=== PATIENT | male | born 1930 | race Two or more races ===

== ENCOUNTER 2018-03-18 23:09 | Inpatient (IN) | payer MEDICARE, OTHER ==
[~2018-03-18] VITALS: Ht 165.1 cm; Wt 49.0 kg
[2018-03-19] MEDS ORDERED: ACETAMINOPHEN 325 MG TABLET PO PRN (03:30)
[2018-03-19] MEDS ORDERED: ONDANSETRON HCL/PF 4 MG/2 ML VIAL IVP PRN (03:30)
[2018-03-19] MEDS ORDERED: MORPHINE SULFATE INJ 2 MG/ML DISP.SYRIN IV PRN (03:30)
--- NOTE | 2018-03-19 03:30 | NUR ---
RN NOTES 0230 - PT CAME FROM [facility] VIA GURNEY, AWAKE, ALERT AND ORIENTED X3. ON 2LPM 02 VIA CA AND TOLERATED WELL. DENIES PAIN, NAUSEA, AND VOMITING. VITAL SIGNS STABLE, AFEBRILE. SKIN CHECK DONE, CLEAR AND INTACT. AMBULANCE DID NOT WENT TO ER FOR ADMISSION BEFORE GOING TO THE FLOOR, ALL PAPERS FROM [facility] BROUGHT TO ER FOR ADMISSION. 031 - ANA LILIA EDMONDSON NP WAS PAGED FOR ADMITTING ORDERS, AWAITING FOR RETURN CALL. 318 - RECEIVED ADMITTING ORDERS FROM ANA LILIA LU, PT TO ADMIT TO TELEMETRY FOR SEPSIS. ABDI SHRUB PLANTER MADE AWARE, GREYSON CHARGE NURSE NOTIFIED. TRANSFERRED PT TO 323-2 IN STABLE CONDITION.
[2018-03-19 03:40] VITALS: BP 125/69
--- NOTE | 2018-03-19 03:40 | NUR ---
RN MS OPENING RECEIVING NOTES RECEIVED PATIENT FROM LIZETTE THOMPSON FOR CONTINUITY OF CARE. PATIENT IS FROM [facility] ADMITTED FOR SEPSIS AND PNA, UNDER TELEMETRY RECEIVED PATIENT IN BED AWAKE ALERT AND ORIENTED X 4, ON 2 LITERS VIA NC WITH SPO2 AT 97%, WITH FLOOR BROKER TAGAOLG SPEAKING, PATIENT DENIES ANY SOB OR CHEST PAIN AT THIS TIME. BODY ASSESSMENT COMPLETED SKIN INTACT, BELONGINGS LIST DONE SIGNED BY SON MERISSA. IV SITE TO RIGHT HAND #20 G INTACT AND PATENT NO REDNESS NO INFILTRATION PRESENT. HISTORY PROVIDED BY PATIENT AND SON, SHYANNE VERDUZCO IN MD TO FOLLOW UP, ANA LILIA MADE AWARE OF PATIENT STATUS WITH NEW ORDERS NOTED AND CARRIED OUT FOR SEPSIS TREATMENT,WILL FOLLOW ORDERED. SAFETY PRECAUTIONS IN PLACE, LOW BED AND LOCKED, ORIENTED TO CALL LIGHT. BED ALARM IN PLACE, ALL NEEDS ATTENDED AT THIS TIME WILL CONTINUE TO MONITOR. Addendum: 03/19/18 at 0815 by KULWINDER BERNSTEIN RN CLARIFICATION HELMET HAT SWEATBAND PUNCHER OPENING ADMITTING/RECEIVING NOTES
[2018-03-19 03:46] LABS: BASOPHILS % (AUTO) 0.3 % (0.0-2.0); HEMATOCRIT 46 % (39-51); HEMOGLOBIN 14.7 g/dL (13.5-17.5); LYMPHOCYTES # (AUTO) 0.4 /CMM (0.8-4.8); LYMPHOCYTES % (AUTO) 3.3 % (20.0-44.0); MEAN CORPUSCULAR HEMOGLOBIN 31 PG (26.0-33.0); MEAN CORPUSCULAR HGB CONC 32 g/dl (31.0-36.0); MEAN CORPUSCULAR VOLUME 98 fL (80-96); MONOCYTES # (AUTO) 0.2 /CMM (0.1-1.30); MONOCYTES % (AUTO) 1.4 % (2.0-12.0); NEUTROPHILS # (AUTO) 12.7 /CMM (1.8-8.9); PLATELET COUNT (AUTO) 367 /CMM (150-450); RDW COEFFICIENT OF VARIATION 12.9 (11.5-15.0); RED BLOOD CELL COUNT(AUTO) 4.71 MIL/uL (4.5-6.0); WHITE BLOOD COUNT (AUTO) 13.4 K/uL (4.3-11.0)
[2018-03-19 03:57] LABS: CALCIUM, SERUM 9.3 mg/dL (8.5-10.1); CARBON DIOXIDE 27 mmol/L (21-32); CHLORIDE 104 mmol/L (98-107); CREATININE 1.2 mg/dL (0.6-1.3); GLUCOSE 146 mg/dL (74-106); POTASSIUM 5.9 mmol/L (3.5-5.1); SODIUM SERUM 140 mmol/L (136-145); UREA NITROGEN, BLOOD 20 mg/dL (7-18)
[2018-03-19 04:00] VITALS: BP 125/69
[2018-03-19 04:01] LABS: INR 0.92 (0.87-1.13)
--- NOTE | 2018-03-19 04:08 | NUR ---
CPC NOTES MADE MD ANA LILIA HENDRICKSON AWARE OF LACTIC ACID OF 6.4 WITH NEW ORDERS NOTED AND CARRIED OUT FOR 2L NS BOLUS IVF NS AT 150ML/HR REPEAT LACTIC ACID AT 10 AM 03/19/18 URINE COLLECTION -UA ECHO TO RULE OUT ENDOCARDITIS RESPIRATORY CULTURE FOR FUNGAL AND BACTERIAL. WILL FOLLOW UP ORDERED
[2018-03-19 04:10] LABS: CHOLESTEROL 244 mg/dL (<200); HDL CHOLESTEROL 54 mg/dL (40-60); LDL 185 mg/dL (0-99); TRIGLYCERIDES 62 mg/dL (30-150)
[2018-03-19 04:11] LABS: ALANINE AMINOTRANSFERASE 30 U/L (12-78); ALBUMIN 3.3 g/dL (3.4-5.0); ALKALINE PHOSPHATASE 79 U/L (46-116); ASPARTATE AMINOTRANSFERASE 24 U/L (15-37); BILIRUBIN,DIRECT 0.1 mg/dL (0.0-0.2); BILIRUBIN,TOTAL 0.3 mg/dL (0.2-1.0); IRON, SERUM 72 ug/dl (50-175); PHOSPHORUS 3.2 mg/dL (2.5-4.9); TOTAL IRON BINDING CAPACITY 311 ug/dl (250-450); TOTAL PROTEIN, SERUM 7.5 g/dL (6.4-8.2)
[2018-03-19] MEDS ORDERED: IV NS 0.9% 1,000 ML IV ONE (04:30)
[2018-03-19] MEDS ORDERED: NS IV STA (04:38)
[2018-03-19] MEDS ORDERED: CEFU500T66 PO (05:07)
[2018-03-19] MEDS ORDERED: MONT10TA22 PO (05:07)
[2018-03-19] MEDS ORDERED: SODIUM POLYSTYRENE SULFONATE 15 G/60 ML BOTTLE PO ONE (05:30)
[2018-03-19] MEDS ORDERED: SODIUM BICARBONATE SYR 50 MEQ/50 ML DISP.SYRIN IV ONE (05:30)
[2018-03-19] MEDS ORDERED: Calcium Gluconate 1GM/10ML 9.3 MEQ in IV NS 0.9% 250 ML IV ONE ×2 (05:30→10:00)
--- NOTE | 2018-03-19 05:30 | NUR ---
MANAGER ESTATE NOTES MADE NO ANA LILIA HENDRICKSON AWARE OF POTASSIUM RESULT OF 5.9 WITH NEW ORDERS , WILL FOLLOW UP MD ORDERED. KAYEXALATE 60G/240ML GIVEN ORDERED SODIUM BICARBONATE GIVEN ORDERED
[2018-03-19] MEDS ORDERED: SODIUM POLYSTYRENE SULFONATE 15 G/60 ML BOTTLE ONE (05:56)
[2018-03-19] MEDS ORDERED: SODIUM BICARBONATE SYR 50 MEQ/50 ML DISP.SYRIN ONE (06:00)
--- NOTE | 2018-03-19 06:25 | NUR ---
RN NOTES: RECEIVED CALL FROM CHANCE FROM LAB FOR LACTIC ACID RESULT OF 3.3, RELAYED TO CUPOLA MAN ROTARY ADJUSTER, PER ROTARY ADJUSTER TO GIVE ANOTHER 1L NS BOLUS, AND RECHECK LACTIC ACID AT 10AM
[2018-03-19] MEDS ORDERED: IV NS 0.9% 1,000 ML IV STA (06:26)
[2018-03-19 06:50] LABS: APPEARANCE,URINE CLEAR (CLEAR); BILIRUBIN,URINE NEGATIVE (NEGATIVE); BLOOD, URINE NEGATIVE Ery/uL (NEGATIVE); COLOR,URINE YELLOW (YELLOW); KETONES,URINE NEGATIVE (NEGATIVE); LEUKOCYTE ESTERASE ,URINE NEGATIVE (NEGATIVE); NITRITE, URINE NEGATIVE (NEGATIVE); PROTEIN,URINE NEGATIVE (NEGATIVE); UGLUCOSE NEGATIVE (NEGATIVE); UROBILINOGEN,URINE 0.2 EU/dL (0.2)
[2018-03-19 07:07] VITALS: BP 148/77
--- NOTE | 2018-03-19 07:30 | NUR ---
STRINGS TEACHER INITIAL NOTES Report received. Patient received in bed, awake, sitting by the edge of the bed. Alert and oriented x3-4, verbally responsive, hard of hearing. On oxygen therapy @3LPM via nasal cannula with no SOB/labored breathing. Denies any chest pain or any type of pain at the moment. Tele: Sinus tach; HR 99. Not in any type of distress. On bolus treatment IVF. HOB elevated. Safety measures in place. Will continue to monitor and assess patient.
--- NOTE | 2018-03-19 07:30 | NUR ---
RN CLOSING TELE NOTES PATIENT REMAINS IN BED AWAKE ALERT AND ORIENTED X 4, NO SOB DENIES PAIN OR DISCOMFORT, IV NS BOLUS 2ND BAG INFUSING, IV SITE INTACT AND PATENT, NO REDNESS , NO INFILTRATION PRESENT, SAFETY PRECAUTIONS IN PLACE, LOW BED AND LOCKED, BED ALARM IN PLACE, CALL LIGHT KEPT WITHIN REACH. ALL NEEDS ATTENDED AT THIS TIME WILL CONTINUE TO ENDORSE FOR CONTINUITY OF CARE. ENDORSE TO ADMINISTER CALCIUM GLUCONATE UNABLE TO OVERRIDE MEDICATION CHARGE NURSE AWARE, ENDORSE TO INFUSED 1L NS ORDERED PER MD ORDERED FOR LACTIC ACID OF 3.3. PATIENT TO RECEIVE 3 LITERS TOTAL. REASSESSMENT OF SEPSIS NOT COMPLETED DUE TO SEPSIS ORDER/PROTOCOL NOT COMPLETED DURING SHIFT ENDORSE TO REASSESS AFTER LAST 1L IS INFUSED. PATIENT LEFT SAFE CONTINUITY OF CARE ENDORSED TO NEXT SHIFT.
[2018-03-19 08:00] VITALS: BP 159/83
[2018-03-19] MEDS: PANTOPRAZOLE 40 MG VIAL IV SCH (09:43)
[2018-03-19] MEDS: DOXYCYCLINE 100 MG in IV D5W 100 ML IV SCH ×2 (09:43→22:19)
--- NOTE | 2018-03-19 10:08 | NUR ---
PATIENT HAVING PHYSICAL THERAPY SESSION. WILL DO ECHO TEST LATER..
[2018-03-19 12:00] VITALS: BP 161/70
[2018-03-19 17:10] LABS: CALCIUM, SERUM 8.7 mg/dL (8.5-10.1); CARBON DIOXIDE 29 mmol/L (21-32); CHLORIDE 107 mmol/L (98-107); CREATININE 0.8 mg/dL (0.6-1.3); GLUCOSE 117 mg/dL (74-106); POTASSIUM 3.8 mmol/L (3.5-5.1); SODIUM SERUM 144 mmol/L (136-145); UREA NITROGEN, BLOOD 18 mg/dL (7-18)
--- NOTE | 2018-03-19 17:18 | NUR ---
WIRE DRAWING SETTER - ORDER NOTES Spoke to daughter at bedside to bring cd for CT results from [facility] or to request dania from [facility] if CD is not on-hand. Daughter confirmed and verbalized understanding.
[2018-03-19] MEDS: ALBUTEROL FS 2.5 MG/0.5 ML VIAL.NEB NEB SCH ×3 (19:30→22:57)
[2018-03-19] MEDS: IPRATROPIUM NEB FS 0.5 MG/2.5 ML AMPUL.NEB NEB SCH ×3 (19:30→22:57)
--- NOTE | 2018-03-19 19:37 | NUR ---
OUTPATIENT PHYSICAL THERAPIST ASSISTANT CLOSING NOTES Report given. Patient in bed, awake and verbally responsive. Family at bedside. On droplet isolation to rule out TB. AFB x2 sputum sample collected. Denies any pain at the moment. IV on left forearm #22g; patent and intact with NS running, tolerating well. Tele:Sinus Rhythm; HR 71. On continuous oxygen therapy @2LPM via nasal cannula with no SOB/breathing noted. Not in any type of distress. All needs anticipated and met. Bed in locked and lowest position with call light within reach. Endorsed to oncoming shift nurse
--- NOTE | 2018-03-19 19:40 | NUR ---
TELE/RN NOTES RECEIVED PT. SITTING UP IN CHAIR. PT. IS AWAKE, ALERT AND ORIENTED X 2-3. BREATHING EVEN AND UNLABORED ON 3LPM O2 VIA NC. NO SOB, RESPIRATORY DISTRESS OR COMPLAINTS OF PAIN NOTED AT THIS TIME. ISOLATION PRECAUTIONS IMPLEMENTED AND IN PLACE. PT. WITH EXTERNAL BELT AND LINK SHOP SUPERVISOR PRESENT AND INTACT. CURRENT RHYTHM = WITH LEFT FOREARM 22 GAUGE PERIPHERAL IV PRESENT, PATENT AND INTACT ADMINISTERING TO PT. NS @ 150 ML/HR. PT. WITH FAMILY MEMBER PRESENT AT BEDSIDE. BED LOCKED AND IN LOWEST POSITION, SIDE RAILS UP X2, CALL LIGHT WITHIN REACH, WILL CONTINUE TO MONITOR.
[2018-03-19 20:00] VITALS: BP 152/92
[2018-03-19] MEDS: CEFTRIAXONE 1 G in IV D5W 50 ML IV SCH (21:24)
[2018-03-19] MEDS: MORPHINE SULFATE INJ 4 MG/ML DISP.SYRIN IV PRN (23:02)
[2018-03-20] VITALS: BP 136/73
[2018-03-20] MEDS: ALBUTEROL FS 2.5 MG/0.5 ML VIAL.NEB NEB SCH ×4 (01:16→19:55)
[2018-03-20] MEDS: IPRATROPIUM NEB FS 0.5 MG/2.5 ML AMPUL.NEB NEB SCH ×4 (01:16→19:55)
--- NOTE | 2018-03-20 06:50 | NUR ---
TELE/RN NOTES PT. IS LYING IN BED RESTING. PT. IS EASILY AROUSABLE TO TOUCH. BREATHING EVEN AND UNLABORED ON 3LPM O2 VIA NC. NO SOB, RESPIRATORY DISTRESS OR COMPLAINTS OF PAIN NOTED AT THIS TIME. ISOLATION PRECAUTIONS IMPLEMENTED AND IN PLACE. PT. WITH EXTERNAL ELECTRONIC FUNDS TRANSFER COORDINATOR PRESENT AND INTACT. CURRENT RHYTHM = SINUS RHYTHM HR 82. PT. WITH LEFT FOREARM 22 GAUGE PERIPHERAL IV PRESENT, PATENT AND INTACT ADMINISTERING TO PT. NS @ 150 ML/HR. ALL PT. NEEDS MET. BED LOCKED AND IN LOWEST POSITION, SIDE RAILS UP X2, CALL LIGHT WITHIN REACH, WILL ENDORSE TO DAYSHIFT NURSE FOR CONTINUITY OF CARE.
[2018-03-20 08:00] VITALS: BP 160/76
--- NOTE | 2018-03-20 08:00 | NUR ---
PALLIATIVE CARE NURSE PRACTITIONER NOTES PATIENT IN BED RESTING. NO SOB OR ACUTE DISTRESS NOTED. PATIENT ALERT, ORIENTED X3. ON OXYGEN TOLERATING WELL. PERIPHERAL IV INTACT PATENT RUNNING PRESCRIBED FLUIDS. PATIENT INSTRUCTED AND PROVIDED SPUTUM SPECIMEN CUP TO PROVIDE A SAMPLE. BED IN LOW LOCKED POSITION. CALL LIGHT WITHIN REACH. PATIENT ON ISOLATION TO RULE OUT TB. WILL CONTINUE TO MONITOR.
[2018-03-20] MEDS: PANTOPRAZOLE 40 MG VIAL IV SCH (08:58)
[2018-03-20] MEDS: DOXYCYCLINE 100 MG in IV D5W 100 ML IV SCH ×2 (08:58→22:57)
[2018-03-20 11:39] LABS: CARBON DIOXIDE 28 mmol/L (21-32); CHLORIDE 105 mmol/L (98-107); CREATININE 0.7 mg/dL (0.6-1.3); GLUCOSE 115 mg/dL (74-106); MAGNESIUM 1.7 mg/dL (1.8-2.4); PHOSPHORUS 3.2 mg/dL (2.5-4.9); POTASSIUM 3.3 mmol/L (3.5-5.1); SODIUM SERUM 142 mmol/L (136-145); UREA NITROGEN, BLOOD 16 mg/dL (7-18)
[2018-03-20 11:48] LABS: BASOPHILS % (AUTO) 0.4 % (0.0-2.0); EOSINOPHILS % (AUTO) 1.8 % (0.0-6.0); HEMATOCRIT 38 % (39-51); LYMPHOCYTES # (AUTO) 1.2 /CMM (0.8-4.8); LYMPHOCYTES % (AUTO) 12.3 % (20.0-44.0); MEAN CORPUSCULAR HEMOGLOBIN 32 PG (26.0-33.0); MEAN CORPUSCULAR HGB CONC 34 g/dl (31.0-36.0); MEAN CORPUSCULAR VOLUME 95 fL (80-96); MONOCYTES # (AUTO) 0.6 /CMM (0.1-1.30); MONOCYTES % (AUTO) 5.8 % (2.0-12.0); NEUTROPHILS # (AUTO) 7.8 /CMM (1.8-8.9); NEUTROPHILS % (AUTO) 79.7 % (43.0-81.0); PLATELET COUNT (AUTO) 342 /CMM (150-450); RDW COEFFICIENT OF VARIATION 12.2 (11.5-15.0); RED BLOOD CELL COUNT(AUTO) 4.02 MIL/uL (4.5-6.0); WHITE BLOOD COUNT (AUTO) 9.8 K/uL (4.3-11.0)
[2018-03-20 12:18] LABS: FREE PSA 2.19 ng/mL (0.00-45); PROSTATE SPECIFIC ANTIGEN SCR 13.94 ng/mL (0.00-4.00)
[2018-03-20] MEDS: IV NS 0.9% 1,000 ML BAG IV SCH (13:06)
[2018-03-20] MEDS ORDERED: POTASSIUM CHLORIDE 10 MEQ TABLET.SA PO ONE (15:30)
[2018-03-20] MEDS ORDERED: Magnesium 1 GM/2 ML VIAL IV ONE (15:30)
[2018-03-20 16:00] VITALS: BP 140/70
[2018-03-20] MEDS: Magnesium 1GM/D5W 100ML PREMIX 100 ML IV SCH ×2 (16:18→19:18)
--- NOTE | 2018-03-20 18:28 | NUR ---
MS RN NOTES PATIENT IN BED RESTING NO SOB OR ACUTE DISTRESS NOTED. ALL DUE MEDIATIONS ADMINISTERED. ALL NEEDS MET. WILL ENDORSE TO PM SHIFT.
--- NOTE | 2018-03-20 19:20 | NUR ---
MS/RN NOTES RECEIVED PT. SITTING UP IN BED. PT. IS AWAKE, ALERT AND ORIENTED X 2-3. BREATHING EVEN AND UNLABORED ON 3LPM O2 VIA NC. NO SOB, RESPIRATORY DISTRESS OR COMPLAINTS OF PAIN NOTED AT THIS TIME. ISOLATION PRECAUTIONS IMPLEMENTED AND IN PLACE. PT. WITH LEFT FOREARM 22 GAUGE PERIPHERAL IV PRESENT, PATENT AND INTACT ADMINISTERING TO PT. NS @ 150 ML/HR. PT. WITH FAMILY MEMBER PRESENT AT BEDSIDE. BED LOCKED AND IN LOWEST POSITION, SIDE RAILS UP X2, CALL LIGHT WITHIN REACH, WILL CONTINUE TO MONITOR.
[2018-03-20 20:00] VITALS: BP 165/83
[2018-03-20] MEDS: CEFTRIAXONE 1 G in IV D5W 50 ML IV SCH (21:25)
[2018-03-21] MEDS: IPRATROPIUM NEB FS 0.5 MG/2.5 ML AMPUL.NEB NEB SCH ×4 (02:10→20:32)
[2018-03-21] MEDS: ALBUTEROL FS 2.5 MG/0.5 ML VIAL.NEB NEB SCH ×4 (02:10→20:32)
--- NOTE | 2018-03-21 02:55 | NUR ---
MS/RN NOTES NOTIFIED EPIC BARK SCALER ALY HENDRICKSON PT. IS COMPLAINING OF BEING UNABLE TO URINATE AND PAIN IN HIS BLADDER. PERFORMED BLADDER SCAN PT. RETAINING MORE THAN 650 ML. PER ALY HENDRICKSON NEW ORDER: INSERT DEL ANGEL CATHETER IF PT. RETAINING MORE THAN 300ML ON BLADDER SCAN. WILL INSERT DEL ANGEL CATHETER. WILL CONTINUE TO MONITOR.
--- NOTE | 2018-03-21 03:30 | NUR ---
MS/RN NOTES INSERTED 16 ARMENIAN DEL ANGEL CATHETER. PT. TOLERATED DEL ANGEL INSERTION WELL. PT. DEL ANGEL CATHETER DRAINING CLEAR YELLOW URINE. WILL CONTINUE TO MONITOR.
[2018-03-21] MEDS: IV NS 0.9% 1,000 ML BAG IV SCH ×2 (06:34→13:49)
--- NOTE | 2018-03-21 06:50 | NUR ---
MS/RN NOTES PT. IS LYING IN BED. PT. IS AWAKE, ALERT AND ORIENTED X 2-3. BREATHING EVEN AND UNLABORED ON 3LPM O2 VIA NC. NO SOB, RESPIRATORY DISTRESS OR COMPLAINTS OF PAIN NOTED AT THIS TIME. ISOLATION PRECAUTIONS IMPLEMENTED AND IN PLACE. PT. WITH LEFT FOREARM 22 GAUGE PERIPHERAL IV PRESENT, PATENT AND INTACT ADMINISTERING TO PT. NS @ 150 ML/HR. PT. WITH DEL ANGEL CATHETER PRESENT, PATENT AND INTACT DRAINING CLEAR YELLOW URINE. ALL PT. NEEDS MET. BED LOCKED AND IN LOWEST POSITION, SIDE RAILS UP X2, CALL LIGHT WITHIN REACH, WILL ENDORSE TO DAYSHIFT NURSE FOR CONTINUITY OF CARE.
--- NOTE | 2018-03-21 07:20 | NUR ---
MS RN OPENING NOTE RECEIVED PT IN BED, AA0X3, DENIES N/V, CHEST PAIN, SOB. BREATHING IS EVEN AND UNLABORED ON 3L NC. AIRBORNE AND CONTACT PRECAUTIONS MAINTAINED. L FA #22 G IS INFUSING NS @ 150 ML/HR WITHOUT REDNESS OR SWELLING. DEL ANGEL CATHETER NOTED TO BE DRAINING CLEAR, YELLOW URINE. SAFETY PRECAUTIONS MAINTAINED, ALL NEEDS ATTENDED TO. BED IS LOCKED AND IN LOWEST POSITION, SIDE RAILS UP X2, CALL LIGHT IS WITHIN REACH. WILL CONTINUE TO MONITOR.
[2018-03-21 08:00] VITALS: BP 196/86
[2018-03-21 08:11] LABS: CALCIUM, SERUM 7.9 mg/dL (8.5-10.1); CARBON DIOXIDE 29 mmol/L (21-32); CHLORIDE 105 mmol/L (98-107); CREATININE 0.5 mg/dL (0.6-1.3); GLUCOSE 94 mg/dL (74-106); POTASSIUM 3.6 mmol/L (3.5-5.1); SODIUM SERUM 141 mmol/L (136-145); UREA NITROGEN, BLOOD 9 mg/dL (7-18)
[2018-03-21] MEDS: DOXYCYCLINE HYCLATE (100 MG) 100 MG TABLET PO SCH ×2 (08:18→21:12)
[2018-03-21] MEDS: PANTOPRAZOLE 40 MG VIAL IV SCH (08:18)
[2018-03-21 09:02] LABS: BASOPHILS % (AUTO) 0.5 % (0.0-2.0); EOSINOPHILS % (AUTO) 2.4 % (0.0-6.0); HEMATOCRIT 39 % (39-51); HEMOGLOBIN 13.5 g/dL (13.5-17.5); LYMPHOCYTES % (AUTO) 11.9 % (20.0-44.0); MEAN CORPUSCULAR HEMOGLOBIN 33 PG (26.0-33.0); MEAN CORPUSCULAR HGB CONC 35 g/dl (31.0-36.0); MEAN CORPUSCULAR VOLUME 94 fL (80-96); MONOCYTES % (AUTO) 7.1 % (2.0-12.0); NEUTROPHILS % (AUTO) 78.1 % (43.0-81.0); PLATELET COUNT (AUTO) 333 /CMM (150-450); RDW COEFFICIENT OF VARIATION 13.3 (11.5-15.0); RED BLOOD CELL COUNT(AUTO) 4.08 MIL/uL (4.5-6.0); WHITE BLOOD COUNT (AUTO) 9.6 K/uL (4.3-11.0)
[2018-03-21] MEDS: hydrALAZINE HCL 25 MG TABLET PO PRN (09:20)
[2018-03-21] MEDS ORDERED: SODIUM CL FOR INHALATION 3% 15 ML VIAL.NEB IH ONE (09:30)
[2018-03-21] MEDS: methylPREDNISolone SOD SUCC 125 MG/2ML VIAL IV SCH ×3 (10:43→21:24)
--- NOTE | 2018-03-21 13:50 | NUR ---
MS RN NOTE PT OFF UNIT PT OFF UNIT FOR CT SCAN.
--- NOTE | 2018-03-21 15:00 | NUR ---
MS BAUER DEL ANGEL DEL ANGEL CATHETER NOTED TO BE DRAINING PINK, TINGED URINE WITH A FEW CLOTS AT THIS TIME. PT DENIES PAIN AT INSERTION SITE, BLADDER IS NON-DISTENDED, URINE IS FLOWING FREELY. WILL CONTINUE TO MONITOR. Addendum: 03/21/18 at 1826 by SHAUNA ECHEVERRIA RN ERROR: TIME NOTED WAS 1730.
[2018-03-21] MEDS ORDERED: CT SWABBABLE VALVE TRANS SET 1 EA INFUS.SET MC ONE (15:44)
[2018-03-21] MEDS ORDERED: IOHEXOL-300 100 ML VIAL IV ONE (15:44)
[2018-03-21] MEDS ORDERED: IV NS 0.9% 250 ML IV ONE (15:44)
[2018-03-21 16:00] VITALS: BP 139/68
--- NOTE | 2018-03-21 16:30 | NUR ---
MS RN PT BACK ON UNIT PT BACK FROM CT SCAN. NO ACUTE DISTRESS NOTED. WILL CONTINUE TO MONITOR.
--- NOTE | 2018-03-21 18:18 | NUR ---
MS RN CLOSING NOTE PT IN BED, SLEEPING AND EASILY AROUSABLE, AA0X3, DAUGHTER IS AT THE BEDSIDE. DENIES N/V, CHEST PAIN, SOB AT THIS TIME. BREATHING IS EVEN AND UNLABORED ON 3 L NC. AIRBORNE AND CONTACT PRECAUTIONS MAINTAINED THROUGHOUT THE SHIFT. L FA #22 G IV IS INFUSING NS @ 150ML/HR WITHOUT SWELLING, REDNESS, OR PAIN. DEL ANGEL CATHETER NOTED TO BE DRAINING PINK TINGED, YELLOW URINE WITH A FEW CLOTS, PT DENIES PAIN AT THE INSERTION SITE, URINE IS FLOWING FREELY. SAFETY PRECAUTIONS MAINTAINED, ALL NEEDS ATTENDED TO. BED IS LOCKED AND IN LOWEST POSITION, SIDE RAILS UP X2, CALL LIGHT IS WITHIN REACH. WILL ENDORSE TO INSPECTOR FIREARMS RN FOR CONTINUITY OF CARE.
[2018-03-21 20:00] VITALS: BP 160/99
--- NOTE | 2018-03-21 20:00 | NUR ---
MS TRELL INITIAL NOTES. RECEIVED REPORT FROM AM NURSE GERALDINE . PT DX OF SEPSIS. PT IS ALERT ORIENTED , NEW IV LINE INSERTED ON HIS RIGHT FOREARM GAUGE 20 . DENIES ANY PAIN OR ANY DISCOMFORT. BREATHING EVEN AND NON-LABORED. NO SOB NOTED. SKIN WARM TO TOUCH. ISOLATION PRECAUTION IMPLEMENTED AND OBSERVED. WILL CONTINUE MONITORING. PLACE CALL LIGHT AT REACH.
[2018-03-21] MEDS: MEROPENEM 1 G in IV NS 0.9% 100 ML IV SCH (21:26)
--- NOTE | 2018-03-22 00:21 | NUR ---
MS ICEBOX MAN NOTES PT RESTING AT THIS TIME SON JUST LEFT . RESPIRATION EVEN AND NON-LABORED, NOT IN ANY ACUTE DISTRESS NOTED. IVF STILL INFUSING AT THIS TIME. KEPT HIM WARM AND COMFORTABLE AT ALL TIMES. BED ALARM SET FOR PT SAFETY. WILL CONTINUE MONITORING.
[2018-03-22] MEDS: ALBUTEROL FS 2.5 MG/0.5 ML VIAL.NEB NEB SCH ×5 (01:44→19:49)
[2018-03-22] MEDS: IPRATROPIUM NEB FS 0.5 MG/2.5 ML AMPUL.NEB NEB SCH ×5 (01:44→19:49)
[2018-03-22] MEDS: methylPREDNISolone SOD SUCC 125 MG/2ML VIAL IV SCH ×3 (05:42→20:41)
--- NOTE | 2018-03-22 07:09 | NUR ---
MS CONTROL SPECIALIST CLOSING NOTES PT BACK TO SLEEP AFTER MORNING CARE DONE BY ARASH BRAXTON. ALL DUE MEDS GIVEN AND ALL NEEDS MET. STABLE JORDYN THE NIGHT AND SLEPT WELL. NO SIGNS OF ANY ACUTE DISTRESS OR ANY DISCOMFORT. STILL ON ISOLATION PRECAUTION. ON SEMI FOWLERS POSITION WITH SIDE RAILS X2 UP AND BED IN LOW AND LOCK IN POSITION. PLACE CALL LIGHT AT REACH. ENDORSE TO AM NURSE GERALDINE/ RADHA FOR CONTINUITY OF CARE.
--- NOTE | 2018-03-22 07:20 | NUR ---
MS RN OPENING NOTE RECEIVED PT IN BED FROM SUPPORT SERVICES SPECIALIST MAINTAINER SEWER AND WATERWORKS. PT IS SITTING UP IN BED, ALERT AND ORIENTED X3, DENIES N/V, CHEST PAIN, SOB. BREATHING IS EVEN AND UNLABORED ON 3 L NC. DEL ANGEL CATHETER NOTED TO BE DRAINING CLEAR, YELLOW URINE. R FA #22G IV IS INFUSING NS @ 150ML/HR WITHOUT REDNESS OR SWELLING. AIRBORNE AND CONTACT PRECAUTIONS MAINTAINED. ALL NEEDS ATTENDED TO. BED IS LOCKED AND IN LOWEST POSITION, SIDE RAILS UP X2, CALL LIGHT IS WITHIN REACH. WILL CONTINUE TO MONITOR.
[2018-03-22 08:00] VITALS: BP_SYST 165; BP_SYST 168; BP_DIAS 56; BP_DIAS 68
[2018-03-22] MEDS: hydrALAZINE HCL 25 MG TABLET PO PRN (08:17)
[2018-03-22] MEDS: PANTOPRAZOLE 40 MG VIAL IV SCH (08:17)
[2018-03-22] MEDS: DOXYCYCLINE HYCLATE (100 MG) 100 MG TABLET PO SCH ×2 (08:17→20:41)
[2018-03-22] MEDS ORDERED: LACTULOSE 10 G/15 ML UDC (PYXIS) PO PRN (08:30)
[2018-03-22 08:31] VITALS: BP 165/68
[2018-03-22] MEDS: MEROPENEM 1 G in IV NS 0.9% 100 ML IV SCH ×2 (08:53→20:41)
[2018-03-22 10:00] VITALS: BP 125/65
[2018-03-22 11:49] LABS: HEMATOCRIT 38 % (39-51); HEMOGLOBIN 12.9 g/dL (13.5-17.5); LYMPHOCYTES # (AUTO) 0.5 /CMM (0.8-4.8); LYMPHOCYTES % (AUTO) 3.2 % (20.0-44.0); MEAN CORPUSCULAR HEMOGLOBIN 32 PG (26.0-33.0); MEAN CORPUSCULAR HGB CONC 34 g/dl (31.0-36.0); MEAN CORPUSCULAR VOLUME 94 fL (80-96); MONOCYTES # (AUTO) 0.3 /CMM (0.1-1.30); NEUTROPHILS # (AUTO) 14.9 /CMM (1.8-8.9); NEUTROPHILS % (AUTO) 94.8 % (43.0-81.0); PLATELET COUNT (AUTO) 375 /CMM (150-450); RDW COEFFICIENT OF VARIATION 12.4 (11.5-15.0); RED BLOOD CELL COUNT(AUTO) 4.05 MIL/uL (4.5-6.0); WHITE BLOOD COUNT (AUTO) 15.7 K/uL (4.3-11.0)
[2018-03-22 11:51] LABS: CALCIUM, SERUM 8.4 mg/dL (8.5-10.1); CARBON DIOXIDE 26 mmol/L (21-32); CHLORIDE 103 mmol/L (98-107); CREATININE 0.9 mg/dL (0.6-1.3); GLUCOSE 157 mg/dL (74-106); POTASSIUM 3.8 mmol/L (3.5-5.1); SODIUM SERUM 139 mmol/L (136-145); UREA NITROGEN, BLOOD 14 mg/dL (7-18)
[2018-03-22 16:00] VITALS: BP 156/86
--- NOTE | 2018-03-22 16:45 | NUR ---
MS RN DEL ANGEL PT REFUSED DEL ANGEL CATHETER. DISCONTINUED AND VOIDING TRIAL INITIATED, PLACED URINAL AT THE BEDSIDE AND PROVIDED EDUCATION TO PT AND DAUGHTER TO INFORM NURSE OF FIRST VOID. PT AND DAUGHTER VERBALIZED UNDERSTANDING. WILL CONTINUE TO MONITOR.
[2018-03-22] MEDS ORDERED: ACETYLCYSTEINE 10% 3,000 MG/30 ML VIAL PO ONE (18:00)
[2018-03-22] MEDS ORDERED: ACETYLCYSTEINE 10% 3,000 MG/30 ML VIAL PO SCH (18:00)
--- NOTE | 2018-03-22 18:48 | NUR ---
MS CLOSING NOTE PT IS SITTING UP IN BED, ALERT AND ORIENTED X3, WITH DAUGHTER AT THE BEDSIDE. DENIES N/V, CHEST PAIN, SOB AT THIS TIME. BREATHING IS EVEN AND UNLABORED ON 3L NC. R FA #20G IV IS CLEAN, DRY AND INTACT WITHOUT REDNESS OR SWELLING AND SALINE LOCKED. VOIDING TRIAL INITIATED, AWAITING FIRST VOID. AIRBORNE AND CONTACT PRECAUTIONS MAINTAINED THROUGHOUT THE SHIFT. ALL NEEDS ATTENDED TO. PER DR. SPENCER, FAMILY TO BRING CHEST CT CD FROM [facility]. BED IS LOCKED AND IN LOWEST POSITION, SIDE RAILS UP X2, CALL LIGHT IS WITHIN REACH. WILL CONTINUE TO MONITOR.
--- NOTE | 2018-03-22 19:20 | NUR ---
RN Notes Received pt sitting in bed, awake, alert and oriented x3. On O2 inhalation at 3LPM via NC and tolerated well. No signs of distress and discomfort noted. Denies any pain and discomfort. IV access on right forearm patent and intact. Plan of care discussed with the pt and family at bedside and verbalized understanding. Safety measures and fall precaution observed. Will continue to monitor pt.
--- NOTE | 2018-03-22 19:54 | NUR ---
PATIENT CURRENTLY EATING DINNER AND UNABLE TO GIVE HHN TREATMENT. RN NOTIFIED. Addendum: 03/22/18 at 1955 by RAFA SANTANA RT Amended: Links added.
[2018-03-22 20:52] VITALS: BP 160/77
[2018-03-22 22:00] VITALS: BP 160/77
[2018-03-23] MEDS: ALBUTEROL FS 2.5 MG/0.5 ML VIAL.NEB NEB SCH ×4 (01:18→19:10)
[2018-03-23] MEDS: IPRATROPIUM NEB FS 0.5 MG/2.5 ML AMPUL.NEB NEB SCH ×4 (01:18→19:10)
[2018-03-23] MEDS: methylPREDNISolone SOD SUCC 125 MG/2ML VIAL IV SCH ×3 (06:00→20:15)
--- NOTE | 2018-03-23 06:40 | NUR ---
RN Notes Pt slept on and off overnight. Vital signs stable, afebrile. Denies any pain and discomfort. Diminished breath sounds heard upon auscultation. Still noted with SOB on exertion, kept on continuos O2 inhalation. Assisted to the bathroom, voiding well and had 1BM. Frequent room visit done, safety measures and fall precaution observed. All needs attended. Will endorse to morning RN for continuity of care.
--- NOTE | 2018-03-23 07:00 | NUR ---
MS RN OPENING NOTE RECEIVED PT IN BED, ALERT AND ORIENTED X3, DENIES N/V, CHEST PAIN, SOB AT THIS TIME. BREATHING IS EVEN AND UNLABORED ON 3L NC. R FA #22G IV IS CLEAN, DRY, INTACT AND SALINE LOCKED WITHOUT REDNESS OR SWELLING. AIRBORNE AND CONTACT PRECAUTIONS MAINTAINED. ALL NEEDS ATTENDED TO. BED IS LOCKED AND IN LOWEST POSITION, SIDE RAILS UP X2, CALL LIGHT IS WITHIN REACH, WILL CONTINUE TO MONITOR.
[2018-03-23 08:00] VITALS: BP 163/86
[2018-03-23] MEDS: MEROPENEM 1 G in IV NS 0.9% 100 ML IV SCH ×2 (08:12→20:15)
[2018-03-23] MEDS: hydrALAZINE HCL 25 MG TABLET PO PRN (08:13)
[2018-03-23] MEDS: PANTOPRAZOLE 40 MG VIAL IV SCH (08:13)
[2018-03-23] MEDS: DOXYCYCLINE HYCLATE (100 MG) 100 MG TABLET PO SCH ×2 (08:13→20:15)
--- NOTE | 2018-03-23 09:30 | NUR ---
MS RN NEW IV INSERTED PT C/O OF PAIN AT R FA #20 IV SITE, NURSE UNABLE TO FLUSH IV. A NEW IV WAS INSERTED: R AC #20. DRESSING IS CLEAN, DRY, AND INTACT; IV FLUSHING WITHOUT PAIN OR SWELLING. WILL CONTINUE TO MONITOR.
[2018-03-23 10:00] VITALS: BP 135/83
[2018-03-23 10:39] LABS: HEMATOCRIT 39 % (39-51); HEMOGLOBIN 12.8 g/dL (13.5-17.5); LYMPHOCYTES # (AUTO) 0.6 /CMM (0.8-4.8); LYMPHOCYTES % (AUTO) 3.1 % (20.0-44.0); MEAN CORPUSCULAR HEMOGLOBIN 32 PG (26.0-33.0); MEAN CORPUSCULAR HGB CONC 33 g/dl (31.0-36.0); MEAN CORPUSCULAR VOLUME 97 fL (80-96); MONOCYTES # (AUTO) 0.3 /CMM (0.1-1.30); MONOCYTES % (AUTO) 1.9 % (2.0-12.0); NEUTROPHILS # (AUTO) 17.3 /CMM (1.8-8.9); PLATELET COUNT (AUTO) 399 /CMM (150-450); RDW COEFFICIENT OF VARIATION 13.4 (11.5-15.0); WHITE BLOOD COUNT (AUTO) 18.2 K/uL (4.3-11.0)
[2018-03-23 11:04] LABS: CALCIUM, SERUM 8.5 mg/dL (8.5-10.1); CARBON DIOXIDE 28 mmol/L (21-32); CHLORIDE 102 mmol/L (98-107); GLUCOSE 146 mg/dL (74-106); POTASSIUM 3.6 mmol/L (3.5-5.1); SODIUM SERUM 139 mmol/L (136-145); UREA NITROGEN, BLOOD 21 mg/dL (7-18)
[2018-03-23 15:52] VITALS: BP 117/60
[2018-03-23 16:00] VITALS: BP 117/60
--- NOTE | 2018-03-23 18:20 | NUR ---
MS LANDFILL GAS PLANT FIELD TECHNICIAN AT THE BEDSIDE LAB AT THE BEDSIDE TO OBTAIN REPEAT QUANTIFERON, TECH UNABLE TO GET BLOOD DRAW, SENDING ANOTHER TECH TO ATTEMPT STICK.
--- NOTE | 2018-03-23 18:38 | NUR ---
MS BAUERNATIONAL PARK TOUR GUIDE AT THE BEDSIDE BROOKE WORKMAN AT THE BEDSIDE, ABLE TO OBTAIN BLOOD SAMPLE FOR REPEAT TB QUANTIFERON.
--- NOTE | 2018-03-23 18:38 | NUR ---
MS RN CLOSING NOTE PT IN BED, ALERT AND ORIENTED X3, DAUGHTERS AT THE BEDSIDE. PT DENIES N/V, CHEST PAIN, SOB AT THIS TIME. BREATHING IS EVEN AND UNLABORED ON 3 LC NC, SP02 IS 98%. R AC #20G IV IS CLEAN, DRY, AND INTACT, SALINE LOCKED WITHOUT REDNESS OR SWELLING. AFB X3 RESULTS NEGATIVE FOR TB. DROPLET PRECAUTIONS MAINTAINED FOR ESBL OF SPUTUM. PLANS FOR BRONCHOSCOPY TOMORROW, ORDERS FOR NPO @ MIDNIGHT AND START D5 NS @ 75 ML/HR. CONSENT IS SIGNED AND PLACED IN CHART. BED IS LOCKED AND IN LOWEST POSITION, SIDE RAILS UP X2, CALL LIGHT IS WITHIN REACH. WILL ENDORSE TO ANALYTICS DEVELOPER RN FOR CONTINUITY OF CARE.
--- NOTE | 2018-03-23 19:18 | NUR ---
RN INITIAL NOTES Patient in bed, receiving breathing treatment as of the moment. Family at bedside. With supplemental O2 at 3Lpm. Not in any distress. IV site on RAC g#20 S/L. Droplet precaution maintained for ESBL sputum. Safety measures in place. Call rodriguez within reach. Bed in low, locked position. Patient stable as endorsed by the morning shift RN. Will continue to monitor accordingly
[2018-03-23 20:12] VITALS: BP 131/74
[2018-03-23 20:14] VITALS: BP 131/74
--- NOTE | 2018-03-23 20:30 | NUR ---
RN NOTES Patient's daughter asked information about bronchoscop, information pamphlet regarding the procedure provided.
--- NOTE | 2018-03-23 23:10 | NUR ---
RN NOTES Patient currently eating at bedside with family
[2018-03-23] MEDS: IV D5/ 0.9% NACL 1,000 ML IV PRN (23:59)
[2018-03-24] MEDS ORDERED: IV D5/ 0.9% NACL 1,000 ML IV ONE
[2018-03-24] MEDS: ALBUTEROL FS 2.5 MG/0.5 ML VIAL.NEB NEB SCH ×4 (01:07→19:17)
[2018-03-24] MEDS: IPRATROPIUM NEB FS 0.5 MG/2.5 ML AMPUL.NEB NEB SCH ×4 (01:07→19:17)
[2018-03-24] MEDS: methylPREDNISolone SOD SUCC 125 MG/2ML VIAL IV SCH ×3 (04:31→20:59)
--- NOTE | 2018-03-24 06:57 | NUR ---
RN CLOSING NOTE PATIENT IN BED, ALERT AND ORIENTED X3, DAUGHTER AT THE BEDSIDE. BREATHING IS EVEN AND UNLABORED ON 3 LC NC, SATURATING AT IS 98%. R AC #20G IV IS CLEAN, DRY, AND INTACT, WITH D5 NS INFUSING AT 75ML/HR, WITHOUT REDNESS OR SWELLING. DROPLET PRECAUTIONS MAINTAINED FOR ESBL OF SPUTUM. FOR BRONCHOSCOPY TODAY AT 13:00 HRS. NPO SINCE MIDNIGHT. CONSENT IN CHART. CHECKLIST STARTED. NO COMPLAINTS OF THIS TIME. BED IN LOW, LOCKED POSITION. CALL PETERSON WITHIN REACH. WILL ENDORSE TO ONCOMING RN FOR CONTINUITY OF CARE.
--- NOTE | 2018-03-24 07:10 | NUR ---
MS RN NOTES PATIENT IN BED ALERT ORIENTED X 3.DAUGHTER AT BEDSIDE. NO ACUTE DISTRESS NOTED. BREATHING UNLABORED. NO SOB NOTED. ON 02 @3LPM VIA NC. DENIED ANY PAIN. IV ACCESS PATENT AND INTACT, NO REDNESS OR SWELLING NOTED. SAFETY MEASURES IN PLACE.CALL LIGHT WITHIN REACH. WILL CONTINUE TO MONITOR ACCORDINGLY.
[2018-03-24 07:26] LABS: CALCIUM, SERUM 8.3 mg/dL (8.5-10.1); CARBON DIOXIDE 33 mmol/L (21-32); CHLORIDE 104 mmol/L (98-107); CREATININE 0.8 mg/dL (0.6-1.3); GLUCOSE 149 mg/dL (74-106); MAGNESIUM 1.9 mg/dL (1.8-2.4); PHOSPHORUS 2.9 mg/dL (2.5-4.9); POTASSIUM 3.2 mmol/L (3.5-5.1); SODIUM SERUM 143 mmol/L (136-145); UREA NITROGEN, BLOOD 21 mg/dL (7-18)
[2018-03-24 07:57] LABS: HEMATOCRIT 41 % (39-51); HEMOGLOBIN 13.3 g/dL (13.5-17.5); LYMPHOCYTES # (AUTO) 0.4 /CMM (0.8-4.8); LYMPHOCYTES % (AUTO) 2.2 % (20.0-44.0); MEAN CORPUSCULAR HEMOGLOBIN 32 PG (26.0-33.0); MEAN CORPUSCULAR HGB CONC 32 g/dl (31.0-36.0); MEAN CORPUSCULAR VOLUME 98 fL (80-96); MONOCYTES # (AUTO) 0.5 /CMM (0.1-1.30); MONOCYTES % (AUTO) 3.1 % (2.0-12.0); NEUTROPHILS # (AUTO) 16.4 /CMM (1.8-8.9); NEUTROPHILS % (AUTO) 94.7 % (43.0-81.0); PLATELET COUNT (AUTO) 413 /CMM (150-450); RDW COEFFICIENT OF VARIATION 12.9 (11.5-15.0); WHITE BLOOD COUNT (AUTO) 17.3 K/uL (4.3-11.0)
[2018-03-24 08:00] VITALS: BP 145/90
[2018-03-24] MEDS: PANTOPRAZOLE 40 MG VIAL IV SCH (08:49)
[2018-03-24] MEDS: MEROPENEM 1 G in IV NS 0.9% 100 ML IV SCH ×2 (08:51→20:59)
[2018-03-24] MEDS: DOXYCYCLINE HYCLATE (100 MG) 100 MG TABLET PO SCH ×2 (09:00→20:59)
[2018-03-24 09:46] LABS: ABG BASE EXCESS 4.9 mmol/L; ABG OXYGEN SATURATION 94.9 % (92.0-98.5); ABG PCO2 46.7 mmHg (35.0-45.0); ABG PH 7.427 (7.350-7.450); ABG PO2 82.1 mmHg (75.0-100.0); AaDO2 91.4 mmHg; COHb 0.3 % (0.5-1.5); MetHb 0.8 % (0.0-1.5); O2Hb 93.9 % (94.0-97.0); SITE, ABG Right Radial; VENT MODE, BG 3 LNC
[2018-03-24] MEDS: POTASSIUM CL. PREMIX PERIPHER. 50 ML IV SCH ×4 (09:57→14:44)
[2018-03-24] MEDS ORDERED: SUCCINYLCHOLINE CHLORIDE 20 MG/ML VIAL ONE (12:38)
--- NOTE | 2018-03-24 12:50 | NUR ---
MS RN NOTES PATIENT TRANSPORTED TO THE OR IN STABLE CONDITION WITH O2 @ 3LPM VIA NC. DAUGHTER AT BEDSIDE.
--- NOTE | 2018-03-24 13:36 | NUR ---
MS RN NOTES PATIENT CAME BACK FROM OR IN STABLE CONDITION, PROCEDURE WAS CANCELLED. NOTIFIED LICO PAEZ WITH ORDERS MAY RESUME DIET. NOTED AND CARRIED OUT.
[2018-03-24 16:00] VITALS: BP 153/94
[2018-03-24] MEDS: ENSURE ENLIVE 237 ML LIQUID (VANILLA) PO SCH (17:35)
[2018-03-24] MEDS: IV D5/ 0.9% NACL 1,000 ML IV PRN (17:43)
--- NOTE | 2018-03-24 19:00 | NUR ---
MS RN NOTES PATIENT IN BED ALERT ORIENTED X 3.DAUGHTER AT BEDSIDE. NO ACUTE DISTRESS NOTED. BREATHING UNLABORED. NO SOB NOTED. ON 02 @3LPM VIA NC. DENIED ANY PAIN. IV ACCESS PATENT AND INTACT, NO REDNESS OR SWELLING NOTED. NEEDS ATTENDED AND ANTICIPATED. SAFETY MEASURES IN PLACE.CALL LIGHT WITHIN REACH. ENDORSED TO NIGHT NURSE FOR CONTINUITY OF CARE.
--- NOTE | 2018-03-24 19:10 | NUR ---
MS/RN NOTES RECEIVED PT. SITTING UP IN BED, PT. IS AWAKE, ALERT AND ORIENTED X3 AND IS HARD OF HEARING. BREATHING EVEN AND UNLABORED ON 3LPM O2 VIA NC. NO SOB, RESPIRATORY DISTRESS OR COMPLAINTS OF PAIN NOTED AT THIS TIME. PT. WITH RIGHT AC 20 GAUGE IV SALINE LOCK PRESENT, PATENT AND INTACT. PT. WITH LEFT UPPER ARM PERIPHERAL IV PRESENT, PATENT AND INTACT ADMINISTERING TO PT. D5 NS @ 75 ML/HR. PT. WITH FAMILY MEMBERS PRESENT AT BEDSIDE. ISOLATION PRECAUTIONS IMPLEMENTED AND IN PLACE. BED LOCKED AND IN LOWEST POSITION, SIDE RAILS UP X2, CALL LIGHT WITHIN REACH, WILL CONTINUE TO MONITOR.
[2018-03-24 20:00] VITALS: BP 152/74
[2018-03-25] MEDS: ALBUTEROL FS 2.5 MG/0.5 ML VIAL.NEB NEB SCH ×5 (01:39→22:11)
[2018-03-25] MEDS: IPRATROPIUM NEB FS 0.5 MG/2.5 ML AMPUL.NEB NEB SCH ×4 (01:40→17:20)
[2018-03-25] MEDS: methylPREDNISolone SOD SUCC 125 MG/2ML VIAL IV SCH (05:20)
--- NOTE | 2018-03-25 06:28 | NUR ---
MS/RN NOTES RECEIVED PT. SITTING UP IN BED, PT. IS AWAKE, ALERT AND ORIENTED X3 AND IS HARD OF HEARING. BREATHING EVEN AND UNLABORED ON 3LPM O2 VIA NC. NO SOB, RESPIRATORY DISTRESS OR COMPLAINTS OF PAIN NOTED AT THIS TIME. PT. WITH RIGHT AC 20 GAUGE IV SALINE LOCK PRESENT, PATENT AND INTACT. PT. WITH LEFT UPPER ARM PERIPHERAL IV PRESENT, PATENT AND INTACT ADMINISTERING TO PT. D5 NS @ 75 ML/HR. PT. DAUGHTER PRESENT AT BEDSIDE. ISOLATION PRECAUTIONS IMPLEMENTED AND IN PLACE. ALL PT. NEEDS MET. BED LOCKED AND IN LOWEST POSITION, SIDE RAILS UP X2, CALL LIGHT WITHIN REACH, WILL ENDORSE TO DAYSHIFT NURSE FOR CONTINUITY OF CARE.
[2018-03-25 06:48] LABS: CALCIUM, SERUM 8.2 mg/dL (8.5-10.1); CARBON DIOXIDE 30 mmol/L (21-32); CHLORIDE 105 mmol/L (98-107); CREATININE 0.8 mg/dL (0.6-1.3); GLUCOSE 140 mg/dL (74-106); MAGNESIUM 2.1 mg/dL (1.8-2.4); PHOSPHORUS 3.5 mg/dL (2.5-4.9); POTASSIUM 4.1 mmol/L (3.5-5.1); SODIUM SERUM 141 mmol/L (136-145); UREA NITROGEN, BLOOD 17 mg/dL (7-18)
[2018-03-25 07:00] LABS: BASOPHILS % (AUTO) 0.2 % (0.0-2.0); HEMATOCRIT 42 % (39-51); HEMOGLOBIN 13.9 g/dL (13.5-17.5); LYMPHOCYTES # (AUTO) 0.6 /CMM (0.8-4.8); LYMPHOCYTES % (AUTO) 3.7 % (20.0-44.0); MEAN CORPUSCULAR HEMOGLOBIN 33 PG (26.0-33.0); MEAN CORPUSCULAR HGB CONC 33 g/dl (31.0-36.0); MEAN CORPUSCULAR VOLUME 99 fL (80-96); MONOCYTES # (AUTO) 0.6 /CMM (0.1-1.30); MONOCYTES % (AUTO) 3.5 % (2.0-12.0); NEUTROPHILS # (AUTO) 16.2 /CMM (1.8-8.9); NEUTROPHILS % (AUTO) 92.6 % (43.0-81.0); PLATELET COUNT (AUTO) 354 /CMM (150-450); RDW COEFFICIENT OF VARIATION 13.2 (11.5-15.0); RED BLOOD CELL COUNT(AUTO) 4.26 MIL/uL (4.5-6.0); WHITE BLOOD COUNT (AUTO) 17.5 K/uL (4.3-11.0)
[2018-03-25 08:00] VITALS: BP 184/91
--- NOTE | 2018-03-25 09:00 | NUR ---
RN NOTES RECEIVED PATIENT IN THE BED, A/O X2/3, HARD OF HEARING, ON O2-3.0 NC GETTING BREATHING Tx AT THIS TIME BY RT. SCHEDULED MEDICATION ADMINISTERED. PATIENT BED REST, ASSIST BATHROOM. IV ACCESS ON RIGHT AC AREA INTACT INFUSING D5 NS AT 75 ML/HR. NEEDS ATTENDED AND ANTICIPATED, CALL LIGHT WITHIN TO REACH. FAMILY NEXT TO THE BED . CONTINUED MONITORING.
[2018-03-25] MEDS: DOXYCYCLINE HYCLATE (100 MG) 100 MG TABLET PO SCH ×2 (09:52→21:27)
[2018-03-25] MEDS: ENSURE ENLIVE 237 ML LIQUID (VANILLA) PO SCH ×2 (09:52→17:54)
[2018-03-25] MEDS: MEROPENEM 1 G in IV NS 0.9% 100 ML IV SCH ×2 (09:52→21:27)
[2018-03-25] MEDS: PANTOPRAZOLE 40 MG VIAL IV SCH (09:52)
[2018-03-25] MEDS: IV D5/ 0.9% NACL 1,000 ML IV PRN (10:12)
[2018-03-25 12:11] LABS: QFT MITOGEN VALUE 0.13 IU/mL (.); QFT TB AG MINUS NIL VALUE <0.00 IU/mL (.); QFT TB AG VALUE 0.02 IU/mL (.); QFT TB GOLD Indeterminate (Negative)
[2018-03-25] MEDS: predniSONE 20 MG TABLET PO SCH (12:41)
[2018-03-25 14:00] VITALS: BP 199/96
[2018-03-25] MEDS: hydrALAZINE HCL 25 MG TABLET PO PRN (14:28)
--- NOTE | 2018-03-25 14:28 | NUR ---
RN NOTES ADMINISTERED APRESOLINE 25 MG PO PRN FOR BP-199/95, P-95, PATIENT SITTING IN THE CHAIR ON O2-3L NC, NO SOB AT THIS TIME AFTER BREATHING TX, SCHEDULED MEDICATION ADMINISTERED. FAMILY IS NEXT TO THE BED. CONTINUED MONITORING.
[2018-03-25 15:00] VITALS: BP 125/70
--- NOTE | 2018-03-25 15:00 | NUR ---
RN NOTES PATIENT STABLE LYING IN THE BED, MEDICATION WERE ADMINISTERED EFFECTIVE. RECHECKED V/S BP 125/70, P-90, CONTINUED MONITORING.
[2018-03-25 16:00] VITALS: BP 125/70
--- NOTE | 2018-03-25 17:59 | NUR ---
ALB/ATRO HHN TX GIVEN EARLY DUE TO SOB. ASKED RN TO CALL MD FOR PRN TX BUT SHE INSISTED ON GIVING A EARLY TX NOW (OVERRIDE MEDS). WILL CONT TO MONITOR PT. Addendum: 03/25/18 at 1801 by TIGIST MATHEW RT Amended: Links added.
--- NOTE | 2018-03-25 18:30 | NUR ---
RN NOTES PATIENT RESTING IN THE BED AFTER BREATHING TX, SCHEDULED MED ADMINISTERED, ASSIST TURN AND REPOSTION Q 2 HR. PER FAMILY REQUEST CALLED MD AND GET BREATHING TX FREQUENCY CHANGED Q4 HR, ORDER TAKEN AND CARRIED OUT.PATIENT USING BATHROOM. FAMILY NEXT TO THE BED. ENDORSED ONCOMING NURSE FOR PLAN OF CARE.
[2018-03-25 20:00] VITALS: BP 148/78
--- NOTE | 2018-03-25 20:00 | NUR ---
RECIEVED ASLEEP 2 GRADNSONS AT THE BEDSIDE, STATED THEY WALKED HIM TO THE BATHROOM HE WAS ATTEMPTING TOHAVE A BM BUT WAS UNSUCCESSFUL. BACK IN BED HE IS ASLEEP RESPT EVEN AND UNLABORED
[2018-03-25] MEDS ORDERED: ALBUTEROL FS 2.5 MG/0.5 ML VIAL.NEB ONE (22:05)
--- NOTE | 2018-03-25 22:15 | NUR ---
GIVEN HHN TREATMENT REGULAR Q4 FREQUENCY. Addendum: 03/25/18 at 2216 by RAFA SANTANA RT Amended: Links added.
[2018-03-26] MEDS: IPRATROPIUM NEB FS 0.5 MG/2.5 ML AMPUL.NEB NEB SCH ×4 (01:08→19:07)
[2018-03-26] MEDS: ALBUTEROL FS 2.5 MG/0.5 ML VIAL.NEB NEB SCH ×6 (03:20→22:57)
[2018-03-26] MEDS: IV D5/ 0.9% NACL 1,000 ML IV PRN (04:19)
--- NOTE | 2018-03-26 05:14 | NUR ---
ENDING NOTES; SAT ON THE EDGE OF THE BED AND ATE HIS MECH SOFT CHOPPED DINNER 90%. WEARING HIS 02 SATS94 95 % 2LITERS. NO SOB WITH AMBULATION. FAMILY MEMBER AT THE BEDSIDE 24/01 TO ASSIST WITH HIS CARE.
--- NOTE | 2018-03-26 07:28 | NUR ---
RN OPENING NOTES RECEIVED PT. PT IS STABLE AND RESTING IN BED. NO S/S OF RESP DISTRESS/SOB. NO C/O PAIN AT THIS TIME. IV ACCESS LOCATED ON RAC 20G INFUSING D5NS AT 75 ML/HR. PT REQUESTING STOOL SOFTENER SHE HAS BEEN CONSTIPATED X 2.5 DAYS. SAFETY MEASURES IN PLACE, CALL LIGHT WITHIN REACH. WILL CONTINUE TO MONITOR.
[2018-03-26 07:35] LABS: EOSINOPHILS % (AUTO) 0.1 % (0.0-6.0); HEMATOCRIT 41 % (39-51); HEMOGLOBIN 13.2 g/dL (13.5-17.5); LYMPHOCYTES # (AUTO) 0.5 /CMM (0.8-4.8); LYMPHOCYTES % (AUTO) 3.3 % (20.0-44.0); MEAN CORPUSCULAR HEMOGLOBIN 32 PG (26.0-33.0); MEAN CORPUSCULAR HGB CONC 33 g/dl (31.0-36.0); MEAN CORPUSCULAR VOLUME 99 fL (80-96); NEUTROPHILS # (AUTO) 13.4 /CMM (1.8-8.9); NEUTROPHILS % (AUTO) 89.6 % (43.0-81.0); PLATELET COUNT (AUTO) 396 /CMM (150-450); RDW COEFFICIENT OF VARIATION 13.4 (11.5-15.0); RED BLOOD CELL COUNT(AUTO) 4.13 MIL/uL (4.5-6.0); WHITE BLOOD COUNT (AUTO) 14.9 K/uL (4.3-11.0)
[2018-03-26 07:50] LABS: CALCIUM, SERUM 8.1 mg/dL (8.5-10.1); CARBON DIOXIDE 32 mmol/L (21-32); CHLORIDE 103 mmol/L (98-107); CREATININE 0.8 mg/dL (0.6-1.3); GLUCOSE 131 mg/dL (74-106); PHOSPHORUS 3.2 mg/dL (2.5-4.9); POTASSIUM 3.8 mmol/L (3.5-5.1); SODIUM SERUM 141 mmol/L (136-145); UREA NITROGEN, BLOOD 18 mg/dL (7-18)
[2018-03-26 08:00] VITALS: BP 147/75
[2018-03-26] MEDS: predniSONE 20 MG TABLET PO SCH (08:24)
[2018-03-26] MEDS: PANTOPRAZOLE 40 MG VIAL IV SCH (08:24)
[2018-03-26] MEDS: MEROPENEM 1 G in IV NS 0.9% 100 ML IV SCH ×2 (08:25→20:46)
[2018-03-26] MEDS: ENSURE ENLIVE 237 ML LIQUID (VANILLA) PO SCH ×2 (08:26→17:23)
[2018-03-26] MEDS: MORPHINE SULFATE INJ 4 MG/ML DISP.SYRIN IV PRN (10:45)
[2018-03-26] MEDS ORDERED: ALBU18HF2 INH (11:59)
[2018-03-26] MEDS ORDERED: PRED20TA PO (11:59)
[2018-03-26] MEDS ORDERED: MERO1VIA IV (11:59)
[2018-03-26 16:00] VITALS: BP 154/75
--- NOTE | 2018-03-26 19:19 | NUR ---
RN CLOSING NOTE PT IN BED RESTING.CURRENTLY BREATHING IS LABORED AND EVEN. PT REPOSITIONED UPRIGHT IN BED TO FACILITATE EASE OF BREATHING, RT NOTIFIED. PT C/O DIFFICULTY URINATING, ENDORSED TO RELIGIOUS ASSISTANT FOR RECOMMENDED BLADDER SCAN, RESULTS TO BE NOTIFIED TO MD. SAFETY MEASURES IN PLACE, CALL LIGHT WITHIN REACH. WILL ENDORSE TO RELIGIOUS ASSISTANT FOR KHOI.
--- NOTE | 2018-03-26 19:30 | NUR ---
RN MS OPENING NOTES RECEIVED PATIENT IN BED AWAKE. ALERT AND ORIENTED X3. VERBALLY RESPONSIVE. HARD OR HEARING. FAMILY AT BEDSIDE. BREATHING EVEN AND UNLABORED. NO SOB NOTED. ON 3L OXYGEN VIA NC - SATURATING WELL. NO COMPLAINTS OF PAIN OR DISCOMFORT. AFEBRILE. SKIN DRY AND WARM TO TOUCH. ALL OTHER NEEDS ATTENDED TO. SAFETY MEASURES IN PLACE. CALL LIGHT WITHIN REACH. BED ON LOWEST LOCKED POSITION. WILL CONTINUE TO MONITOR.
[2018-03-26 20:00] VITALS: BP 123/68
--- NOTE | 2018-03-26 22:00 | NUR ---
RN MS NOTES FAMILY REQUESTED FOR BLADDER SCAN TO BE PERFORMED. BLADDER SCAN DONE . PATIENT NOTED WITH >200ML VOLUME. HOWEVER, PATIENT CAN STILL URINATE ABOUT 30CC-50CC EACH TIME. INFORMED FAMILY OF THE BLADDER SCAN RESULT, BUT PER FAMILY ITS OK NOT TO INFORM MD SINCE PATIENT IS VOIDING. PER FAMILY THEY DONT WANT ANOTHER DEL ANGEL CATHETER IN PLACE BECAUSE IT MIGHT CAUSE TRAUMA TO THE PATIENT.
[2018-03-26] MEDS ORDERED: diphenhydrAMINE HCL ELIX 25 MG/10 ML UDC PO PRN (23:30)
[2018-03-27] MEDS: IPRATROPIUM NEB FS 0.5 MG/2.5 ML AMPUL.NEB NEB SCH ×3 (01:31→13:52)
[2018-03-27] MEDS: IV D5/ 0.9% NACL 1,000 ML IV PRN (01:46)
[2018-03-27] MEDS: ALBUTEROL FS 2.5 MG/0.5 ML VIAL.NEB NEB SCH ×3 (03:31→13:52)
--- NOTE | 2018-03-27 06:50 | NUR ---
RN MS CLOSING NOTES PATIENT IN BED ASLEEP. NO ACUTE CHANGES THROUGHOUT SHIFT. GRANDSON AT BEDSIDE. BREATHING EVEN AND UNLABORED. NO SOB NOTED. ON 3L OXYGEN VIA NC - SATURATING WELL. NO COMPLAINTS OF PAIN OR DISCOMFORT. AFEBRILE. SKIN DRY AND WARM TO TOUCH. ALL OTHER NEEDS ATTENDED TO. SAFETY MEASURES IN PLACE. CALL LIGHT WITHIN REACH. BED ON LOWEST LOCKED POSITION. WILL ENDORSE TO ONCOMING NURSE FOR CONTINUITY OF CARE.
--- NOTE | 2018-03-27 07:43 | NUR ---
RN OPENING NOTES RECEIVED PT. PT IS STABLE AND RESTING IN BED. NO S/S OF RESP DISTRESS/SOB. NO C/O PAIN AT THIS TIME. IV ACCESS LOCATED ON RAC 20G INFUSING D5NS AT 75 ML/HR. PT AND FAMILY CONTINUING APPEAL OF D/C, WILL F/U WITH CASE MANAGEMENT. SAFETY MEASURES IN PLACE, CALL LIGHT WITHIN REACH. WILL CONTINUE TO MONITOR.
[2018-03-27 08:00] VITALS: BP 159/77
[2018-03-27] MEDS: PANTOPRAZOLE 40 MG VIAL IV SCH (08:41)
[2018-03-27] MEDS: MEROPENEM 1 G in IV NS 0.9% 100 ML IV SCH (08:41)
[2018-03-27] MEDS: ENSURE ENLIVE 237 ML LIQUID (VANILLA) PO SCH (08:45)
[2018-03-27] MEDS: predniSONE 20 MG TABLET PO SCH (08:45)
[2018-03-27 09:00] VITALS: BP 151/72
[2018-03-27] MEDS: MORPHINE SULFATE INJ 4 MG/ML DISP.SYRIN IV PRN (10:43)
--- NOTE | 2018-03-27 15:15 | NUR ---
DISCHARGE NOTE PT DISCHARGED TO [facility]. REPORT CALLED AND GIVEN TO ILDA OF [facility]. PT IS STABLE, NO S/S OF RESP DISTRESS/SOB. NO C/O PAIN. PT TO CONTINUE IV ABX, [facility], AT FACILITY FOR ONE ADDITIONAL DAY. IV ACCESS LEFT IN PLACE FOR SNF. DISCHARGE TEACHING PERFORMED USING EXIT CARE. ALL D/C PAPERWORK AND BELONGINGS LIST SIGNED/COPIED AND PLACED IN CHART. PRESCRIPTIONS COPIED AND PLACED IN CHART. PT LEFT HOSPITAL IN AMBULANCE WITH [facility].
== END 2018-03-27 14:50 | disposition home health service (06) | DRG 177 ==
LOC: MEDSG2 03-19 02:59 → TELE 03-19 03:52 → MED 03-20 09:50
PROVIDERS: ADMIT Registered Nurse; ATTEND Family Medicine
DX: J15.0 Pneumonia due to Klebsiella pneumoniae (principal); N17.0 Acute kidney failure with tubular necrosis; E44.1 Mild protein-calorie malnutrition; E87.2 Acidosis; J47.0 Bronchiectasis with acute lower respiratory infection; J98.11 Atelectasis; R65.10 Systemic inflammatory response syndrome (SIRS) of non-infectious origin without acute organ dysfunction; E87.5 Hyperkalemia; Z99.81 Dependence on supplemental oxygen; Z87.891 Personal history of nicotine dependence; Z85.46 Personal history of malignant neoplasm of prostate; N40.0 Benign prostatic hyperplasia without lower urinary tract symptoms; J43.9 Emphysema, unspecified; H91.90 Unspecified hearing loss, unspecified ear; J43.2 Centrilobular emphysema; I70.0 Atherosclerosis of aorta; K76.0 Fatty (change of) liver, not elsewhere classified
CPT/HCPCS: 36415; 36600; 71045-TC; 80048-TC; 80053-TC; 80061-TC; 81000-TC; 82247-TC; 82248-TC; 83540-TC; 83605-TC; 83735-TC; 83880; 84100-TC; 84153-TC; 84154-TC; 84443-TC; 84484-TC; 85025-TC; 85610-TC; 85730-TC; 87070-TC; 87081-TC; 87116; 87186-TC; 87206; 87806; 92611-TC; 93307-TC; 94640-TC; 94799-TC; A4218; A4606; A6402; C9113; J0330; J0610; J0696; J2185; J2270; J2930; J3475; J3480; J3490; J7030; J7040; J7042; J7050; J7060; Q9967; Z7610